=== PATIENT | male | born 1995 | race Caucasian/White ===

== ENCOUNTER → 2018-09-20 | Outpatient (REF) | payer BC ==
[2018-09-20 22:04] LABS: CHLAMYDIA DNA AMPLIFICATION NEGATIVE (NEGATIVE); GC DNA AMPLIFICATION NEGATIVE (NEGATIVE)
[2018-09-22 11:07] LABS: HEPATITIS C VIRUS ABY INDEX 0.1 INDEX (<0.8)
[2018-09-22 11:07] LABS: HEPATITIS A ANTIBODY IGM NEGATIVE (NEGATIVE); HEPATITIS B CORE ANTIBODY IGM NEGATIVE (NEGATIVE); HEPATITIS B SURFACE ANTIGEN NEGATIVE (NEGATIVE)
== END ==
LOC: M LAB REF 17:26
DX: Z72.51 High risk heterosexual behavior (principal)
CPT/HCPCS: 87340